=== PATIENT | female | born 1990 | race Caucasian/White ===

== ENCOUNTER 2016-11-13 10:19 | Emergency (ER) | payer SELFPAY ==
--- NOTE | 2016-11-21 18:10 | ER ---
ADMIT: 11/13/2016 RM/LOC: ER [facility] MR#: [id number] [facility] [address] [place] [id number] [facility] [address] [place] [address] Emergency Room Report SEX: F AGE: 26 : 1990 DATE: 11/13/2016 PRIMARY CARE: None. CHIEF COMPLAINT: Pelvic pain. HISTORY OF PRESENT ILLNESS: A 26-year-old female, who presents with 2 weeks duration of vaginal spotting and a week of right lower quadrant pain. States she was treated a month ago when she was coughing up blood for bronchitis with Zithromax and steroids, has improved. States she has some vaginal pain, described it as pulsating. States she has been spotting brownish pink exudates for the past 2 weeks. Her last normal menstrual period was 09/29/2016, has been irregular since then. She is sexually active. Does not use any form of control. She is G0, P0. Denies any urinary symptoms other than the light brown vaginal discharge. COURSE IN THE EMERGENCY ROOM: GENERAL: The patient was seen and examined, afebrile and nontoxic. No acute distress. PELVIC EXAM: External exam normal, no herpes-like lesions. Speculum exam shows significant white brown discharge. No tenderness. No active bleeding from the cervix. Bimanual exam, no cervical motion tenderness. No adnexal tenderness. I did obtain a pelvic ultrasound. Ovaries appeared normal. No free fluid. Urine preg was negative. GC chlamydia negative. Chlamydia and gonorrhea pending at this time. Wet prep shows no clue cells, moderate bacteria. UA shows signs of infection. Positive nitrite, 2+ leukocyte esterase, 108 wbc's, 12 rbc's. She was given her first dose of Bactrim DS in the department. IMPRESSION: 1. Acute cystitis. 2. Vaginal discharge. 3. Right lower quadrant abdominal pain. DISPOSITION: The patient was discharged home. Script for Bactrim DS 1 tab p.o. b.i.d. for 5 days. I did recommend that she follow up with her primary care OB to recheck her Pap smear as well as the irregular periods. She should practice safe sex. Questions were sought and answered to the best of my ability and to the patient's satisfaction. She was discharged in stable condition. GABY Carranza / Cisco Hansen MD / adinal JOB #: [id number] CC: Cisco Hansen MD, Attending Physician UNKNOWN, Family Physician
== END 2016-11-13 12:39 | disposition home or self-care (01) ==
LOC: ER 10:19
DX: N30.00 Acute cystitis without hematuria (principal); N89.8 Other specified noninflammatory disorders of vagina; R10.31 Right lower quadrant pain; Z85.41 Personal history of malignant neoplasm of cervix uteri; Z98.890 Other specified postprocedural states; Z88.0 Allergy status to penicillin; Z79.899 Other long term (current) drug therapy